=== PATIENT | male | born 1940 | race Two or more races ===

== ENCOUNTER 2019-04-08 19:04 | Emergency (ER) | payer SELFPAY ==
[~2019-04-08] VITALS: Ht 177.8 cm; Wt 113.4 kg
[~2019-04-08 19:04] MED LIST: ADVIL200 M2 ORAL; ASPIR 8181 MG ORAL; NKM
[2019-04-08 19:14] VITALS: BP 126/79
--- NOTE | 2019-04-08 19:14 | NUR ---
ER Nurse Note: Pt BIB[place] [address] c/o ETOH. Unable to assess mental status; pt VSS, no signs of acute distress. Pt shows protruding abd and belly button. Pt has belongings at bedside; will continue to [facility].
[2019-04-08] MEDS ORDERED: Isovue-300 100ml vial INJ PRN (19:30)
[2019-04-08 20:20] LABS: BASOPHILS % (AUTO) 0.9 % (0.0-2.0); EOSINOPHILS % (AUTO) 0.6 % (0.0-3.0); HEMATOCRIT 38.8 % (42.0-52.0); HEMOGLOBIN 12.8 G/DL (14.2-18.0); LYMPHOCYTES % (AUTO) 30.7 % (20.0-45.0); MEAN CORPUSCULAR VOLUME 88 FL (80-99); MONOCYTES % (AUTO) 8.3 % (1.0-10.0); NEUTROPHILS % (AUTO) 59.6 % (45.0-75.0); PLATELET COUNT 188 K/UL (150-450); RED CELL DISTRIBUTION WIDTH 14.2 % (11.6-14.8); WHITE BLOOD COUNT 8.1 K/UL (4.8-10.8)
[2019-04-08 20:32] LABS: ANION GAP 14 mmol/L (5-15); BLOOD UREA NITROGEN 22 mg/dL (7-18); CALCIUM 8.2 MG/DL (8.5-10.1); CARBON DIOXIDE 24 MMOL/L (21-32); CHLORIDE 103 MMOL/L (98-107); CREATININE 0.9 MG/DL (0.55-1.30); POTASSIUM 3.8 MMOL/L (3.5-5.1); SODIUM 141 MMOL/L (136-145)
[2019-04-08 20:42] LABS: ALANINE AMINOTRANSFERASE 22 U/L (12-78); ALBUMIN 3.8 G/DL (3.4-5.0); ALBUMIN/GLOBULIN RATIO 1.2 (1.0-2.7); ALKALINE PHOSPHATASE 77 U/L (46-116); ASPARTATE AMINO TRANSFERASE 38 U/L (15-37); BILIRUBIN,TOTAL 0.4 MG/DL (0.2-1.0); CKMB 12.4 NG/ML (0.0-3.6); CREATINE KINASE 664 U/L (26-308)
--- NOTE | 2019-04-08 21:00 | Diagnostic Imaging Report ---
EXAM: CT Head Without Intravenous Contrast CLINICAL HISTORY: FAINT TECHNIQUE: Axial computed tomography images of the head/brain without intravenous contrast. CTDI is 0.15, 70.38 mGy and DLP is 1372 mGy-cm. One or more of the following dose reduction techniques were used: automated exposure control, adjustment of the mA and/or kV according to patient size, use of iterative reconstruction technique. COMPARISON: CT head dated 03/20/2013 FINDINGS: Brain: No acute infarct, hemorrhage, mass or edema. Chronic small vessel ischemic disease and senescent changes. Ventricles: Unremarkable. No ventriculomegaly. Bones/joints: Evidence of right sided craniotomy. No acute fracture. Soft tissues: Unremarkable. Sinuses: Mild mucosal thickening in the paranasal sinuses. Mastoid air cells: Unremarkable as visualized. No mastoid effusion. IMPRESSION: No acute findings.
--- NOTE | 2019-04-08 21:06 | Emergency Room Report ---
History of Present Illness General Chief Complaint: Alcohol Intoxication Source: EMS (Marcelina Gaffney) Present Illness HPI 78-year-old male with unknown past medical history brought in by the paramedics after being found on the strain due to alcohol intoxication. Patient is alert and awake however does not respond to questions. Patient is a Bulgarian speaker, morbidly obese, with an obvious nonreducible umbilical hernia noted. Patient is not a good historian at this time and denying any pain. Does not recall whether he had his head on the street or not. Cannot respond to questions such as dizziness, nausea vomiting, abdominal pain. However denies having any chest pain, palpitation, shortness of breath. Denies drug use and tobacco smoke. Unable to obtain past medical history. Patient has been at [facility] before for alcohol intoxication. (Marcelina Gaffney) Allergies: Coded Allergies: No Known Allergies (Unverified , 10/04/17) UNABLE TO ASSESS (Unverified , 03/20/13) Patient History Past Medical History: see triage record Past Surgical History: unable to obtain Pertinent Family History: none Social History: Reports: alcohol use Immunizations: UTD Reviewed Nursing Documentation: PMH: Agreed; PSxH: Agreed (Marcelina Gaffney) Nursing Documentation-PMH Past Medical History: No Stated History Hx Neurological Problems: Yes - EYE PROBLEMS (Marcelina Gaffney) Review of Systems All Other Systems: negative except mentioned in HPI (Marcelina Gaffney) Physical Exam Vital Signs Date Time Temp Pulse Resp B/P (MAP) Pulse Ox O2 Delivery O2 Flow Rate FiO2 04/08/19 19:05 98.2 114 16 126/79 (95) 98 Room Air Sp02 EP Interpretation: abnormal General Appearance: alert, mild distress, obese, other - Disheveled Head: normocephalic, atraumatic Eyes: bilateral eye normal inspection, bilateral eye PERRL ENT: normal ENT inspection, normal pharynx Neck: normal inspection, full range of motion, supple Respiratory: normal inspection, chest non-tender, lungs clear, no rhonchi, no wheezing Cardiovascular #1: normal inspection, no edema, no murmur, normal capillary refill Gastrointestinal: no mass, no organomegaly, no peritonitis, no bruit, no guarding, no pulsatile mass, hernia - Nonreproducible, protruding umbilical hernia however no incarcanation noted Rectal: deferred Genitourinary: no CVA tenderness Musculoskeletal: normal inspection, back normal, digits/nails normal Neurologic: normal inspection, alert, oriented x3, responsive, hand winder III-XII nml as tested Psychiatric: normal inspection, judgement/insight normal, memory normal Skin: no rash Lymphatic: normal inspection, no adenopathy (Marcelina Gaffney) Medical Decision Making PA Attestation All my diagnosis and treatment plans were reviewed ad discussed with my supervising physician Dr. Leonardo (Marcelina Gaffney) Diagnostic Impression: Primary Impression: Acute alcoholic intoxication Qualified Codes: F10.920 - Alcohol use, unspecified with intoxication, uncomplicated Additional Impression: Hernia, umbilical Qualified Codes: K42.9 - Umbilical hernia without obstruction or gangrene ER Course 78-year-old male with unknown past medical history brought in by the paramedics after being found on the strain due to alcohol intoxication. Patient is alert and awake however does not respond to questions. Patient is a Bulgarian speaker, morbidly obese, with an obvious nonreducible umbilical hernia noted. Patient is not a good historian at this time and denying any pain. Does not recall whether he had his head on the street or not. Cannot respond to questions such as dizziness, nausea vomiting, abdominal pain. However denies having any chest pain, palpitation, shortness of breath. Denies drug use and tobacco smoke. Unable to obtain past medical history. Patient has been at [facility] before for alcohol intoxication. Ddx considered but are not limited to: Alcohol intoxication, drug abuse, nonreducible umbilical hernia, complicated umbilical hernia, Vital signs: are WNL, pt. is afebrile H&PE are most consistent with: Nonreducible hernia, alcohol intoxication ORDERS: Psychiatric set, CT head, abdominal CT ED INTERVENTIONS: NS bolus, Zofran DISCHARGE: At this time pt. is stable for d/c to home. Will provide printed patient care instructions, and any necessary prescriptions. Care plan and follow up instructions have been discussed with the patient prior to discharge. I signed out the patient to Dr. Victor (Marcelina Gaffney) ER Course Signed out to me. He presents with alcohol intoxication. No evidence of any injury. CT is unremarkable. He slept through the night. Will discharge in the morning. Patient said he does not want to go to halfway. (René Victor MD) EKG Diagnostic Results Rhythm: NSR ST Segments: no acute changes (Marcelina Gaffney) CT/MRI/US Diagnostic Results CT/MRI/US Diagnostic Results #1: Imaging Test Ordered: head CT no contrast Impression FINDINGS: Brain: No acute infarct, hemorrhage, mass or edema. Chronic small vessel ischemic disease and senescent changes. Ventricles: Unremarkable. No ventriculomegaly. Bones/joints: Evidence of right sided craniotomy. No acute fracture. Soft tissues: Unremarkable. Sinuses: Mild mucosal thickening in the paranasal sinuses. Mastoid air cells: Unremarkable as visualized. No mastoid effusion. IMPRESSION: No acute findings. CT/MRI/US Diagnostic Results #2: Imaging Test Ordered: CT abdomen pelvis with contrast Impression No acute changes noted within normal limits (Marcelina Gaffney) Last Vital Signs Date Time Temp Pulse Resp B/P (MAP) Pulse Ox O2 Delivery O2 Flow Rate FiO2 04/08/19 19:14 98.2 114 16 126/79 98 Room Air (Marcelina Gaffney) Disposition: HOME, SELF-CARE Condition: Stable Patient Instructions: Alcohol Intoxication, [id number] Additional Instructions: Stop drinking alcohol. Follow-up with rehab. Return if worse. Marcelina Gaffney Apr 08, 2019 21:06 René Victor MD Apr 09, 2019 00:20
--- NOTE | 2019-04-08 21:17 | Diagnostic Imaging Report ---
EXAM: CT Abdomen and Pelvis With Intravenous Contrast CLINICAL HISTORY: PAIN TECHNIQUE: Axial computed tomography images of the abdomen and pelvis with intravenous contrast. CTDI is 0.15, 19.07 mGy and DLP is 1092 mGy-cm. One or more of the following dose reduction techniques were used: automated exposure control, adjustment of the mA and/or kV according to patient size, use of iterative reconstruction technique. COMPARISON: No relevant prior studies available. FINDINGS: Lung bases: Dependent atelectasis and or scarring. ABDOMEN: Liver: Unremarkable. Gallbladder and bile ducts: Unremarkable. Pancreas: Unremarkable. Spleen: Unremarkable. Adrenals: Unremarkable. Kidneys and ureters: Unremarkable. Stomach and bowel: Apparent wall thickening of the ascending colon which is likely secondary to under distention. A nonspecific colitis is not excluded. Noninflamed colon diverticulosis. PELVIS: Appendix: Appendix is unremarkable. Bladder: Unremarkable. Reproductive: Unremarkable as visualized. ABDOMEN and PELVIS: Intraperitoneal space: Unremarkable. Bones/joints: No acute fracture. No dislocation. Soft tissues: Small fat-containing umbilical hernia with trace edema. Vasculature: Vascular calcifications. No abdominal aortic aneurysm. Lymph nodes: Unremarkable. IMPRESSION: Apparent wall thickening of the ascending colon which is likely secondary to under distention. A nonspecific colitis is not excluded.
--- NOTE | 2019-04-08 21:42 | Diagnostic Imaging Report ---
EXAM: XR Chest, 1 View CLINICAL HISTORY: PAIN TECHNIQUE: Frontal view of the chest. COMPARISON: CT abdomen and pelvis dated 04/08/2019 FINDINGS: Lungs: Bibasilar atelectasis. Pleural space: Unremarkable. No pneumothorax. Heart: Heart is mildly enlarged. Mediastinum: Unremarkable. Bones/joints: Unremarkable. IMPRESSION: No acute findings.
[2019-04-08 23:55] VITALS: BP 124/72
--- NOTE | 2019-04-08 23:59 | NUR ---
ER Nurse Note: All orders completed per ERMD orders. Pt unable to provide urine; urinal at bedside. SLIV LT FA; patent. Pt asleep, calm, comfortable. DC when sober. All safety measures met; Will continue to [facility].
[2019-04-09 02:59] LABS: APPEARANCE,URINE CLEAR; BILIRUBIN, URINE NEGATIVE (NEGATIVE); GLUCOSE, URINE (UA) NEGATIVE (NEGATIVE); KETONES,URINE 2+ (NEGATIVE); LEUKOCYTE ESTERASE ,URINE NEGATIVE (NEGATIVE); NITRITE,URINE NEGATIVE (NEGATIVE); PH,URINE 5 (4.5-8.0); PROTEIN,URINE 1+ (NEGATIVE); UROBILINOGEN,URINE NORMAL MG/DL (0.0-1.0)
[2019-04-09 03:04] LABS: COLOR,URINE YELLOW
[2019-04-09 04:45] VITALS: BP 130/74
--- NOTE | 2019-04-09 04:46 | NUR ---
ER Nurse Note: Pt asleep, VSS, no signs of distress. Pt arousable, chest rise and fall noted. Pt denies pain, n/v, shortness of breath. Pt provided urine, received results. Pending DC in AM. All safety measures met; will continue to [facility].
[2019-04-09 06:20] VITALS: BP 130/74
--- NOTE | 2019-04-09 06:20 | NUR ---
ER Nurse Note: Pt seen, treated, medically cleared for discharge by ERMD. Discharge instuctions given with repeat verbalization by pt. Emphasized to follow up with primay care provider. All orders completed per ERMD orders. Pt a&ox4, VSS, no signs of distress, steady gait. ID band removed. IV removed; site clean and bandaged. All questions answered per pt's questions. Pt left with all belongings, left with own transportation per pt's choice. Pt was provided food, beverage. Homeless discharge checklist completed and logged.
== END 2019-04-09 06:20 | disposition home or self-care (01) ==
LOC: EDUNIT# 19:04 → EDBD 19:04 → EMR 19:20
DX: F10.129 Alcohol abuse with intoxication, unspecified (principal); K42.9 Umbilical hernia without obstruction or gangrene
CPT/HCPCS: 36415; 70450; 71045; 74177; 80053; 80307; 81003; 82550; 82553; 84484; 85025; 96361; 96374; 99284; G0480; J2405; Q9967; 80329

== ENCOUNTER 2019-06-29 16:57 | Emergency (ER) | payer MEDICAID ==
[~2019-06-29] VITALS: Ht 177.8 cm; Wt 113.4 kg
--- NOTE | 2019-06-29 17:18 | NUR ---
ED Nurse Note:pt. was BIBA from bus stop with ETOH, pt. is A/Ox3 zambian speeking, blood and urine sent to labs, given IV fluids
[2019-06-29 17:19] VITALS: BP 127/72
[2019-06-29 18:02] LABS: APPEARANCE,URINE CLEAR; BILIRUBIN, URINE NEGATIVE (NEGATIVE); COLOR,URINE PALE YELLOW; EOSINOPHILS % (AUTO) 0.6 % (0.0-3.0); GLUCOSE, URINE (UA) NEGATIVE (NEGATIVE); HEMATOCRIT 39.3 % (42.0-52.0); KETONES,URINE NEGATIVE (NEGATIVE); LEUKOCYTE ESTERASE ,URINE 2+ (NEGATIVE); MEAN CORPUSCULAR VOLUME 89 FL (80-99); MONOCYTES % (AUTO) 8.4 % (1.0-10.0); NITRITE,URINE NEGATIVE (NEGATIVE); PH,URINE 5 (4.5-8.0); PLATELET COUNT 187 K/UL (150-450); PROTEIN,URINE NEGATIVE (NEGATIVE); RED BLOOD COUNT 4.43 M/UL (4.70-6.10); RED CELL DISTRIBUTION WIDTH 14.6 % (11.6-14.8); UROBILINOGEN,URINE NORMAL MG/DL (0.0-1.0); WHITE BLOOD COUNT 11.4 K/UL (4.8-10.8)
--- NOTE | 2019-06-29 18:09 | Emergency Room Report ---
History of Present Illness General Chief Complaint: Alcohol Intoxication Source: Patient Present Illness HPI This patient is known to [facility]. He has a history of alcohol abuse. He presents with alcohol intoxication. He presents again today being drunk in public. Patient himself has no complaints. Allergies: Coded Allergies: No Known Allergies (Unverified , 10/04/17) UNABLE TO ASSESS (Unverified , 03/20/13) Patient History Past Medical History: see triage record, other - ETOH abuse Social History: Reports: alcohol use; Denies: smoking, drug use Reviewed Nursing Documentation: PMH: Agreed; PSxH: Agreed Nursing Documentation-PM Past Medical History: No Stated History Hx Neurological Problems: Yes - EYE PROBLEMS Review of Systems All Other Systems: limited Physical Exam Vital Signs Date Time Temp Pulse Resp B/P (MAP) Pulse Ox O2 Delivery O2 Flow Rate FiO2 06/29/19 16:55 98.2 97 18 127/72 (90) 99 Room Air Sp02 EP Interpretation: reviewed, normal General Appearance: no apparent distress, non-toxic, Stupor Head: normocephalic, atraumatic Eyes: bilateral eye normal inspection, bilateral eye PERRL ENT: hearing grossly normal, normal pharynx, no angioedema, normal voice Neck: full range of motion, supple/symm/no masses Respiratory: chest non-tender, lungs clear, normal breath sounds, no respiratory distress, no retraction, no accessory muscle use, speaking full sentences Cardiovascular #1: regular rate, rhythm, no edema Gastrointestinal: normal bowel sounds, non tender, soft, non-distended, no guarding, no rebound Rectal: deferred Musculoskeletal: back normal, gait/station normal, normal range of motion, non- tender Neurologic: responsive, motor strength/tone normal, speech normal, grossly normal, other - Unable to fully assess secondary to ETOH intoxication. Skin: no rash Medical Decision Making Diagnostic Impression: Primary Impression: Acute alcoholic intoxication Additional Impression: UTI (urinary tract infection) ER Course This patient presents with acute alcoholic intoxication. The patient's laboratory workup was noncontributory other than a UTI. There is no evidence of trauma or injury on physical examination of this patient. CT head was unremarkable. The patient was allowed to sober up in the emergency department and was able to ambulate and articulate desire to go home. The patient was clinically sober at the time of discharge. The patient is found to have urinary tract infection. No acute emergency medical condition is identified. The patient was educated on the dangers of alcohol intoxication and abuse. The patient was given a list of the local rehabilitation clinics. Laboratory Tests Test 06/29/19 17:45 White Blood Count 11.4 K/UL (4.8-10.8) H Red Blood Count 4.43 M/UL (4.70-6.10) L Hemoglobin 13.0 G/DL (14.2-18.0) L Hematocrit 39.3 % (42.0-52.0) L Mean Corpuscular Volume 89 FL (80-99) Mean Corpuscular Hemoglobin 29.2 PG (27.0-31.0) Mean Corpuscular Hemoglobin Concent 33.0 G/DL (32.0-36.0) Red Cell Distribution Width 14.6 % (11.6-14.8) Platelet Count 187 K/UL (150-450) Mean Platelet Volume 8.6 FL (6.5-10.1) Neutrophils (%) (Auto) 62.0 % (45.0-75.0) Lymphocytes (%) (Auto) 28.0 % (20.0-45.0) Monocytes (%) (Auto) 8.4 % (1.0-10.0) Eosinophils (%) (Auto) 0.6 % (0.0-3.0) Basophils (%) (Auto) 1.0 % (0.0-2.0) Urine Color Pale yellow Urine Appearance Clear Urine pH 5 (4.5-8.0) Urine Specific [place] 1.010 (1.005-1.035) Urine Protein Negative (NEGATIVE) Urine Glucose (UA) Negative (NEGATIVE) Urine Ketones Negative (NEGATIVE) Urine Blood 2+ (NEGATIVE) H Urine Nitrite Negative (NEGATIVE) Urine Bilirubin Negative (NEGATIVE) Urine Urobilinogen Normal MG/DL (0.0-1.0) Urine Leukocyte Esterase 2+ (NEGATIVE) H Urine RBC 2-4 /HPF (0 - 0) H Urine WBC 20-30 /HPF (0 - 0) H Urine Squamous Epithelial Cells Occasional /LPF Urine Bacteria Occasional /HPF (NONE) Sodium Level 144 MMOL/L (136-145) Potassium Level 3.3 MMOL/L (3.5-5.1) L Chloride Level 108 MMOL/L (98-107) H Carbon Dioxide Level 26 MMOL/L (21-32) Anion Gap 10 mmol/L (5-15) Blood Urea Nitrogen 14 mg/dL (7-18) Creatinine 0.8 MG/DL (0.55-1.30) Estimate Glomerular Filtration Rate mL/min (>60) Glucose Level 102 MG/DL (74-106) Calcium Level 8.7 MG/DL (8.5-10.1) Total Bilirubin 0.3 MG/DL (0.2-1.0) Aspartate Amino Transferase (AST) 17 U/L (15-37) Alanine Aminotransferase (ALT) 19 U/L (12-78) Alkaline Phosphatase 70 U/L (46-116) Total Creatine Kinase 112 U/L (26-308) Total Protein 7.2 G/DL (6.4-8.2) Albumin 3.5 G/DL (3.4-5.0) Globulin 3.7 g/dL Albumin/Globulin Ratio 0.9 (1.0-2.7) L Urine Opiates Screen Negative (NEGATIVE) Urine Barbiturates Screen Negative (NEGATIVE) Phencyclidine (PCP) Screen Negative (NEGATIVE) Urine Amphetamines Screen Negative (NEGATIVE) Urine Benzodiazepines Screen Negative (NEGATIVE) Urine Cocaine Screen Negative (NEGATIVE) Urine Marijuana (THC) Screen Negative (NEGATIVE) Serum Alcohol 293 mg/dL CT/MRI/US Diagnostic Results CT/MRI/US Diagnostic Results : Imaging Test Ordered: CT head Impression No acute findings. Specifically no intracranial bleed, mass effect or edema. See official report. Last Vital Signs Date Time Temp Pulse Resp B/P (MAP) Pulse Ox O2 Delivery O2 Flow Rate FiO2 06/29/19 17:19 98.2 89 18 127/72 99 Room Air Status: improved Disposition: HOME, SELF-CARE Condition: Improved Patient Instructions: Alcohol Intoxication, [id number] Luz Hodgson DO Jun 29, 2019 18:09
[2019-06-29 18:19] LABS: ANION GAP 10 mmol/L (5-15); BLOOD UREA NITROGEN 14 mg/dL (7-18); CALCIUM 8.7 MG/DL (8.5-10.1); CARBON DIOXIDE 26 MMOL/L (21-32); CHLORIDE 108 MMOL/L (98-107); CREATININE 0.8 MG/DL (0.55-1.30); POTASSIUM 3.3 MMOL/L (3.5-5.1); SODIUM 144 MMOL/L (136-145)
[2019-06-29 18:24] LABS: ALANINE AMINOTRANSFERASE 19 U/L (12-78); ALBUMIN 3.5 G/DL (3.4-5.0); ALBUMIN/GLOBULIN RATIO 0.9 (1.0-2.7); ALKALINE PHOSPHATASE 70 U/L (46-116); ASPARTATE AMINO TRANSFERASE 17 U/L (15-37); BILIRUBIN,TOTAL 0.3 MG/DL (0.2-1.0); CREATINE KINASE 112 U/L (26-308)
--- NOTE | 2019-06-29 19:23 | NUR ---
ED Nurse Note: Patient went over for imaging with atmospheric technician.
[2019-06-29] MEDS ORDERED: Lidocaine 1% MPF 10mg/ml 5ml INJ ONE (19:45)
[2019-06-29] MEDS ORDERED: ceFAZolin 1gm/50ml Premix 50 ML IV ONE (19:45)
--- NOTE | 2019-06-29 19:47 | NUR ---
ED Nurse Note: Patient returned from radiology.
--- NOTE | 2019-06-29 19:56 | Diagnostic Imaging Report ---
Indication: Altered mental status Technique: Continuous helical CT scanning of the head was performed utilizing automated exposure control without intravenous contrast material. Axial and coronal reconstructions were obtained. Comparison: 04/08/2019 CT dose: Total DLP 1424.1 mGycm; CTDI vol 60 mGy Findings: Postsurgical changes from right frontal craniotomy again noted. A thin extra-axial collection or soft tissue thickening just underlying the craniotomy defect measures 3.5 mm in maximal diameter (coronal image #12). This is unchanged compared to the prior exam and likely postsurgical. There is no acute intracranial hemorrhage, mass effect or cortical edema. No shift the midline structures. The ventricles, cisterns and sulci are prominent consistent with mild atrophy, similar to the prior exam. Periventricular hypoattenuation is seen, a nonspecific finding. Visualized mastoid air cells and paranasal sinuses are unremarkable. Retained metallic foreign body again noted medial to the left orbit. This is unchanged compared to exam of 03/20/2013. No acute skull fracture identified. IMPRESSION: No evidence of acute intracranial hemorrhage, mass effect or cortical edema. MRI may be obtained for more sensitive evaluation as clinically indicated. Atrophy and nonspecific periventricular hypoattenuation suggestive of chronic ischemic microvascular changes. Right frontal craniotomy with thin extra-axial collection versus dural thickening subjacent to the craniotomy measuring up to 3.5 mm in maximal diameter, unchanged from the prior exam and likely postsurgical. This corresponds with the statrad preliminary report. The CT scanner at [facility] is accredited by the [employer] and the scans are performed using protocols designed to limit radiation exposure to as low as reasonably achievable to attain images of sufficient resolution adequate for diagnostic evaluation.
[2019-06-29] MEDS ORDERED: BACTRIM-DS1 EA ORAL (21:37)
[2019-06-29 22:06] VITALS: BP 127/72
--- NOTE | 2019-06-29 22:06 | NUR ---
ED Nurse Note: Patient cleared for discharge by ERMGeorgiana. Patient is awake alert and oriented x4, able to ambulated with steady gait. Patient provided with brand new pants since his original pair were soiled. Patient verbalized understanding of discharge instructions and departed with all belongings. IV removed, Id band removed.
== END 2019-06-29 22:06 | disposition home or self-care (01) ==
LOC: EDBD 16:57 → EMR 20:41
DX: F10.129 Alcohol abuse with intoxication, unspecified (principal); N39.0 Urinary tract infection, site not specified; Y90.8 Blood alcohol level of 240 mg/100 ml or more
CPT/HCPCS: 36415; 70450; 80053; 80307; 81001; 82550; 85025; 87086; 87181; 96361; 96365; 96372; 96375; G0480; J0690; J0696; J2405; S0028; Z7502; 99284; J7030

== ENCOUNTER 2019-06-30 14:01 | Emergency (ER) | payer MEDICAID ==
[~2019-06-30] VITALS: Ht 172.7 cm; Wt 113.4 kg
[~2019-06-30 14:01] MED LIST changes: +BACTRIM-DS1 EA ORAL
--- NOTE | 2019-06-30 14:05 | NUR ---
ED Nurse Note: Patient brought in by fide c/o ETOH, patient was found on the floor and picked up from the streets, patient was recently brought in here yesterday for the same reason. IV placed on patients right arm 20 gauge, placed on a monitor, no head trama noted, o2 sat 100% eyes NANETTE
[2019-06-30 14:30] VITALS: BP 142/84
--- NOTE | 2019-06-30 14:32 | Emergency Room Report ---
History of Present Illness General Chief Complaint: Altered Level of Consciousness Source: Medical Record, EMS Present Illness HPI 78-year-old male presents to emergency room status post altered mental status found at the corner of a history with alcohol beside him. EMS alerted by bystanders. History is limited due to patient unable to answer questions at this time due to mental status changes. Of note patient was evaluated yesterday for similar mental status changes Allergies: Coded Allergies: No Known Allergies (Unverified , 10/04/17) Patient History Limited by: other - Mental status changes Past Medical History: unable to obtain Past Surgical History: unable to obtain Pertinent Family History: unable to obtain Nursing Documentation-[facility] Past Medical History: No History, Except For Hx Neurological Problems: Yes - EYE PROBLEMS Review of Systems All Other Systems: limited - Unable to perform due to altered mental status Physical Exam Vital Signs Date Time Temp Pulse Resp B/P (MAP) Pulse Ox O2 Delivery O2 Flow Rate FiO2 06/30/19 14:02 98.1 92 15 142/84 (103) 98 Room Air Sp02 EP Interpretation: reviewed, normal General Appearance: no apparent distress, alert, GCS 15, non-toxic Head: normocephalic, atraumatic Eyes: bilateral eye normal inspection, bilateral eye PERRL ENT: normal pharynx, no angioedema, normal voice Neck: full range of motion, supple/symm/no masses Respiratory: chest non-tender, lungs clear, normal breath sounds Cardiovascular #1: regular rate, rhythm, no edema Cardiovascular #2: 2+ radial (R), 2+ radial (L), 2+ dorsalis pedis (R), 2+ dorsalis pedis (L) Gastrointestinal: normal bowel sounds, non tender, soft, non-distended, no guarding, no rebound, hernia - Umbilical, reducible no overlying skin changes Rectal: deferred Genitourinary: normal inspection, no CVA tenderness Musculoskeletal: back normal, normal range of motion, non-tender, calf tenderness Neurologic: other - Lethargic Psychiatric: judgement/insight normal, memory normal, mood/affect normal, no suicidal/homicidal ideation Lymphatic: no adenopathy Medical Decision Making Diagnostic Impression: Primary Impression: Acute alcoholic intoxication ER Course 88-year-old male presents with mental status changes found to be alcohol intoxicated patient discharged with stable gait and no complaints at reassessment Laboratory Tests Test 06/30/19 15:16 White Blood Count 6.0 K/UL (4.8-10.8) Red Blood Count 4.20 M/UL (4.70-6.10) L Hemoglobin 12.3 G/DL (14.2-18.0) L Hematocrit 36.8 % (42.0-52.0) L Mean Corpuscular Volume 88 FL (80-99) Mean Corpuscular Hemoglobin 29.3 PG (27.0-31.0) Mean Corpuscular Hemoglobin Concent 33.4 G/DL (32.0-36.0) Red Cell Distribution Width 14.6 % (11.6-14.8) Platelet Count 182 K/UL (150-450) Mean Platelet Volume 8.0 FL (6.5-10.1) Neutrophils (%) (Auto) 47.2 % (45.0-75.0) Lymphocytes (%) (Auto) 40.8 % (20.0-45.0) Monocytes (%) (Auto) 8.9 % (1.0-10.0) Eosinophils (%) (Auto) 1.9 % (0.0-3.0) Basophils (%) (Auto) 1.3 % (0.0-2.0) Sodium Level 148 MMOL/L (136-145) H Potassium Level 3.5 MMOL/L (3.5-5.1) Chloride Level 111 MMOL/L (98-107) H Carbon Dioxide Level 26 MMOL/L (21-32) Anion Gap 11 mmol/L (5-15) Blood Urea Nitrogen 10 mg/dL (7-18) Creatinine 0.8 MG/DL (0.55-1.30) Estimat Glomerular Filtration Rate mL/min (>60) Glucose Level 90 MG/DL (74-106) Calcium Level 7.9 MG/DL (8.5-10.1) L Total Bilirubin 0.2 MG/DL (0.2-1.0) Aspartate Amino Transf (AST/SGOT) 20 U/L (15-37) Alanine Aminotransferase (ALT/SGPT) 20 U/L (12-78) Alkaline Phosphatase 71 U/L (46-116) Troponin I 0.000 ng/mL (0.000-0.056) Total Protein 6.6 G/DL (6.4-8.2) Albumin 3.2 G/DL (3.4-5.0) L Globulin 3.4 g/dL Albumin/Globulin Ratio 0.9 (1.0-2.7) L Urine Opiates Screen Negative (NEGATIVE) Urine Barbiturates Screen Negative (NEGATIVE) Phencyclidine (PCP) Screen Negative (NEGATIVE) Urine Amphetamines Screen Negative (NEGATIVE) Urine Benzodiazepines Screen Negative (NEGATIVE) Urine Cocaine Screen Negative (NEGATIVE) Urine Marijuana (THC) Screen Negative (NEGATIVE) Serum Alcohol 282 mg/dL EKG Diagnostic Results Rate: other - Atrial fibrillation rate of 90s ST Segments: no acute changes Rhythm Strip Diag. Results Rhythm: NSR, no PVC's CT/MRI/US Diagnostic Results CT/MRI/US Diagnostic Results : Impression CT IMPRESSION: No significant interval change from exam one day prior. No evidence of acute intracranial hemorrhage, mass effect or cortical edema. Atrophy and nonspecific periventricular hypoattenuation suggestive of chronic ischemic microvascular changes. Right frontal craniotomy with thin extra-axial collection versus dural thickening subjacent to the craniotomy measuring up to 3.5 mm in maximal diameter, unchanged from the prior exam and likely postsurgical. The CT scanner at [facility] is accredited by the [employer] and the scans are performed using protocols designed to limit radiation exposure to as low as reasonably achievable to attain images of sufficient resolution adequate for diagnostic evaluation. Last Vital Signs Date Time Temp Pulse Resp B/P (MAP) Pulse Ox O2 Delivery O2 Flow Rate FiO2 06/30/19 14:02 98.1 92 15 142/84 (103) 98 Room Air Disposition: HOME, SELF-CARE Condition: Stable Referrals: NOT CHOSEN TAYLOR/,REFERRING (PCP) Ulices Mcgill M.D. Jun 30, 2019 14:31
--- NOTE | 2019-06-30 15:16 | Diagnostic Imaging Report ---
Indication: Altered mental status Technique: Continuous helical CT scanning of the head was performed utilizing automated exposure control without intravenous contrast material. Axial and coronal reconstructions were obtained. Comparison: 06/29/2019 CT dose: Total DLP 1334.1 mGycm; CTDI vol 60 mGy Findings: Postsurgical changes from right frontal craniotomy again noted. A thin extra-axial collection or soft tissue thickening just underlying the craniotomy defect measures 3.5 mm in maximal diameter (coronal image #12). This is unchanged compared to the prior exam and likely postsurgical. There is no acute intracranial hemorrhage, mass effect or cortical edema. No shift the midline structures. The ventricles, cisterns and sulci are prominent consistent with mild atrophy, similar to the prior exam. Periventricular hypoattenuation is seen, a nonspecific finding. No acute skull fracture identified. IMPRESSION: No significant interval change from exam one day prior. No evidence of acute intracranial hemorrhage, mass effect or cortical edema. Atrophy and nonspecific periventricular hypoattenuation suggestive of chronic ischemic microvascular changes. Right frontal craniotomy with thin extra-axial collection versus dural thickening subjacent to the craniotomy measuring up to 3.5 mm in maximal diameter, unchanged from the prior exam and likely postsurgical. The CT scanner at [facility] is accredited by the [employer] and the scans are performed using protocols designed to limit radiation exposure to as low as reasonably achievable to attain images of sufficient resolution adequate for diagnostic evaluation.
[2019-06-30 15:30] VITALS: BP_SYST 125; BP_SYST 142; BP_DIAS 79; BP_DIAS 84
[2019-06-30 15:30] LABS: BASOPHILS % (AUTO) 1.3 % (0.0-2.0); EOSINOPHILS % (AUTO) 1.9 % (0.0-3.0); HEMATOCRIT 36.8 % (42.0-52.0); HEMOGLOBIN 12.3 G/DL (14.2-18.0); LYMPHOCYTES % (AUTO) 40.8 % (20.0-45.0); MEAN CORPUSCULAR VOLUME 88 FL (80-99); MONOCYTES % (AUTO) 8.9 % (1.0-10.0); NEUTROPHILS % (AUTO) 47.2 % (45.0-75.0); PLATELET COUNT 182 K/UL (150-450); RED CELL DISTRIBUTION WIDTH 14.6 % (11.6-14.8)
--- NOTE | 2019-06-30 15:30 | NUR ---
ED Nurse Note: Patient sleeping, will continue to monitor
[2019-06-30 15:38] LABS: ANION GAP 11 mmol/L (5-15); BLOOD UREA NITROGEN 10 mg/dL (7-18); CALCIUM 7.9 MG/DL (8.5-10.1); CARBON DIOXIDE 26 MMOL/L (21-32); CHLORIDE 111 MMOL/L (98-107); CREATININE 0.8 MG/DL (0.55-1.30); POTASSIUM 3.5 MMOL/L (3.5-5.1); SODIUM 148 MMOL/L (136-145)
[2019-06-30 15:43] LABS: ALANINE AMINOTRANSFERASE 20 U/L (12-78); ALBUMIN 3.2 G/DL (3.4-5.0); ALBUMIN/GLOBULIN RATIO 0.9 (1.0-2.7); ALKALINE PHOSPHATASE 71 U/L (46-116); ASPARTATE AMINO TRANSFERASE 20 U/L (15-37); BILIRUBIN,TOTAL 0.2 MG/DL (0.2-1.0)
--- NOTE | 2019-06-30 18:00 | NUR ---
ED Nurse Note: Spoke with Dr. Mcgill, states patient will be dced once sober
[2019-06-30 18:26] VITALS: BP 125/80
--- NOTE | 2019-06-30 19:11 | NUR ---
HAND-OFF: Report given to Celestino Macdonald.
[2019-06-30 20:25] VITALS: BP 125/80
--- NOTE | 2019-06-30 20:25 | NUR ---
ER DISCHARGE NOTE: Patient is cleared to be discharged per ERMD, pt is aox4, on room air, with stable vital signs. pt was given dc and prescription instructions, pt was able to verbalize understanding, pt id band and iv site removed without complications. pt is able to ambulate with steady gait. pt took all belongings.
--- NOTE | 2019-07-03 14:07 | Cardiology Report ---
APPROVED REPORT EKG Measurement Heart [id number] Atrial fibrillation Nonspecific ST and T wave abnormality Abnormal ECG
== END 2019-06-30 20:25 | disposition home or self-care (01) ==
LOC: EDBD 14:01 → EMR 14:13
DX: F10.129 Alcohol abuse with intoxication, unspecified (principal); Y90.8 Blood alcohol level of 240 mg/100 ml or more
CPT/HCPCS: 36415; 70450; 80053; 80307; 84484; 85025; 93005; G0480; Z7502; 99284